=== PATIENT | female | born 1985 | race Caucasian/White ===

== ENCOUNTER 2017-02-28 00:18 | Inpatient (IN) | payer OTHER ==
[~2017-02-28] VITALS: Ht 162.6 cm; Wt 3.2 kg
[2017-02-28] MEDS ORDERED: PRENATAL TABLE1 EAC1 PO (00:38)
== END 2017-03-03 12:45 | DRG 766 ==
LOC: LDR 00:18 → OB/GYN 00:18
PROVIDERS: Obstetrics & Gynecology
PROC: 4A1HXCZ Monitoring of Products of Conception, Cardiac Rate, External Approach (ICD-10-PCS; 2017-02-28)
PROC: 4A033R1 Measurement of Arterial Saturation, Peripheral, Percutaneous Approach (ICD-10-PCS; 2017-02-28)
PROC: 10D00Z1 Extraction of Products of Conception, Low, Open Approach (ICD-10-PCS; principal; 2017-02-28 08:00)
DX: O32.4XX0 Maternal care for high head at term, not applicable or unspecified (principal); Z3A.39 39 weeks gestation of pregnancy; Z37.0 Single live birth